=== PATIENT | male | born 1980 | race Caucasian/White ===

== ENCOUNTER 2016-08-02 10:00 | Inpatient (IN) | payer OTHER ==
--- NOTE | ~2016-08-02 | DS ---
Unit #: [id number] #: [id number] Patient: ASPEN MOYER [id number] [place] [address] [id number] MR#: [id number] NAME: ASPEN MOYER ROOM: [facility] Age: 35 Sex: M Admission Date: 08/02/2016 : 1980 Discharge Date: 08/06/2016 Attending Physician: Michael Alexandre M.D. [facility] DIS[facility]GE SUMMARY REASON FOR ADMISSION The patient is a 35-year-old white male, admitted to the [address] [place] [address] for alcohol detox and what appears to been in manic phase of bipolar disorder. HOSPITAL COURSE The patient was admitted to the [address] [place] [address] and placed on routine detoxification protocol for alcohol. He continued to require multiple p.r.n.'s and it appeared after his initial period of intoxication and had resolved that his ongoing symptoms of irritability, threatening behavior etc., were probably consistent with a bipolar manic episode. Accordingly, the patient's medications including Depakote and Seroquel were titrated aggressively upward. The patient did request reinitiation of Adderall, but it was explained that addition of this medication during a manic phase would be unwise. The patient on 08/06/2016 was much calmer, bright, pleasant, cooperative, and agreeable to plan for followup in the intensive outpatient program. There was no evidence of pressured speech or other manic symptoms. Discharge was as per the patient's request ordered. FINAL DIAGNOSES Bipolar disorder, most recent episode manic; alcohol use disorder. DISPOSITION ON DISCHARGE The patient is discharged on the following medications: Depakote 500 mg t.i.d. for mood stabilization, Neurontin 400 mg t.i.d. for mood stabilization, Vistaril 25 mg q.6 hours p.r.n. anxiety, Seroquel 400 mg at bedtime for mood stabilization. Celexa which the patient had previously taken has been discontinued given his manic symptoms. The patient will participate in the intensive outpatient program following his discharge from the hospital. PROGNOSIS His prognosis is considered fair but will be darkened considerably should he continue to abuse alcohol. Dictated by... Michael Alexandre M.D. VIKTOR/apoorva TD: 08/06/2016 17:29 JOB #: [id number] Unit #: [id number] #: [id number] Patient: ASPEN MOYER DISCHARGE SUMMARY Page 1 of 1 X Michael Alexandre MD X DISCHARGE SUMMARY
--- NOTE | ~2016-08-02 | PN ---
Unit #: [id number] #: [id number] Patient: ASPEN MOYER [id number] [facility] [address] [place] [address] [id number] MR#: [id number] NAME: ASPEN MOYER ROOM: P206 Age: 35 Sex: M Admission Date: 08/02/2016 : 1980 Attending Physician: Michael Alexandre M.D. Admitting Physician: Michael Alexandre M.D. Primary Care Physician: [facility] PROGRESS NOTES DATE 08/05/2016 DISCUSSION The patient continues to appear agitated, irritable, consistent with a bipolar manic episode. Upward titration of Seroquel will take place to a dose of 400 mg, and I will increase the patient's Depakote to 1500 mg daily in a divided dose. The patient has also been provided with p.r.n. Haldol, Ativan, and Benadryl today as per his request. Dictated by... Michael Alexandre M.D. CB/kristie TD: 08/05/2016 13:44 JOB #: [id number] [facility] PROGRESS NOTES Page 1 of 1 X Michael Alexandre MD X PROGRESS NOTE
--- NOTE | ~2016-08-02 | PN ---
Unit #: [id number] #: [id number] Patient: ASPEN MOYER [id number] [facility] [address] [place] [address] [id number] MR#: [id number] NAME: ASPEN MOYER ROOM: P206 Age: 35 Sex: M Admission Date: 08/02/2016 : 1980 Attending Physician: Michael Alexandre M.D. Admitting Physician: Michael Alexandre M.D. Primary Care Physician: [facility] PROGRESS NOTES DATE 08/03/2016 DISCUSSION The patient is contrite over yesterday's events. He is expressing interest in going to [facility] following his discharge from this facility. His detox continues uneventfully and he is active within the therapeutic milieu. Dictated by... Michael Alexandre M.D. CB/starr TD: 08/03/2016 21:49 JOB #: [id number] [facility] PROGRESS NOTES Page 1 of 1 X Michael Alexandre MD PROGRESS NOTE
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
--- NOTE | ~2016-08-02 | PN ---
Unit #: [id number] #: [id number] Patient: ASPEN MOYER [id number] [facility] [address] [place] [address] [id number] MR#: [id number] NAME: ASPEN MOYER ROOM: P206 Age: 35 Sex: M Admission Date: 08/02/2016 : 1980 Attending Physician: Michael Alexandre M.D. Admitting Physician: Michael Alexandre M.D. Primary Care Physician: [facility] PROGRESS NOTES DATE 08/04/2016 DISCUSSION The patient seems to be exhibiting symptoms possibly consistent with bipolar manic episode as he required p.r.n. Haldol, Benadryl, and Ativan earlier today. He is now sleeping soundly after he had threatened staff and property destruction. We continued current treatment and have restarted the patient's prescribed psychotropic medications including Seroquel and Depakote which he takes for the bipolar spectrum disorder. Dictated by... Michael Alexandre M.D. CB/davonte TD: 08/04/2016 14:11 JOB #: [id number] [facility] PROGRESS NOTES Page 1 of 1 X Michael Alexandre MD X PROGRESS NOTE
--- NOTE | ~2016-08-02 | PA ---
Unit #: [id number] #: [id number] Patient: ASPEN MOYER [id number] [place] [address] [id number] MR#: [id number] NAME: ASPEN MOYER ROOM: P206 Age: 35 Sex: M Admission Date: 08/02/2016 : 1980 Date of Assessment: 08/01/2016 Attending Physician: Michael Alexandre M.D. Admitting Physician: Michael Alexandre M.D. Primary Care Physician: [facility] PSYCHIATRIC ASSESSMENT IDENTIFYING INFORMATION The patient is a 35-year-old white male admitted to the [address] [place] [address] with increasing abuse of alcohol. INFORMANT(S) The patient and chart, reliability good. CHIEF COMPLAINT None given HISTORY OF PRESENT ILLNESS The patient is a 35-year-old white male last hospitalized at this facility in July of 2015. He has a history of alcohol dependence and when last hospitalized here was voicing suicidal ideation related to a relationship breakup. When seen today the patient was admitted with a blood alcohol of 0.176 and required a 72 hour hold in the emergency room. He is contrite over his return to this facility. For complete history of present illness please refer to previous dictated notes. PAST PSYCHIATRIC HISTORY Reviewed no changes. PAST MEDICAL HISTORY Reviewed no changes. MEDICATIONS At the time of the patient's discharge from this facility he was prescribed Neurontin 600 mg three times daily for mood stabilization. ALLERGIES None reported. FAMILY HISTORY Reviewed no changes. SOCIAL HISTORY Reviewed no changes. MENTAL STATUS EXAMINATION At this time reveals the patient to be a well-developed, well-nourished white male, appearing his stated age. He smells heavily of alcohol and is somewhat disheveled. He is awake, alert and oriented in all spheres. His Unit #: [id number] #: [id number] Patient: ASPEN MOYER mood is dysphoric. His affect constricted. He is clearly intoxicated. Speech is slurred but generally relevant and coherent. There are no gross deficits in memory or cognition noted. Intelligence is judged to be in the average range based on fund of knowledge. The patient is cooperative throughout the interview. He is currently denying suicidal or homicidal ideation or psychotic features. Judgment and insight appear to be intact. ASSETS AND LIABILITIES ASSETS: To be assessed. LIABILITIES: Ongoing alcohol use. DIAGNOSTIC IMPRESSION Alcohol use disorder, history of traumatic brain injury. TREATMENT PLAN The patient remains hospitalized for safety and stabilization. 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 ESTIMATED LENGTH OF STAY Three to five days. Suicidal precautions are in place as is a routing detoxification protocol for alcohol. Dictated by... Michael Alexandre M.D. VIKTOR/starr TD: 08/03/2016 02:14 JOB #: [id number] PSYCHIATRIC ASSESSMENT Page 1 of 1 X Michael Alexandre MD X PSYCHIATRIC ASSESSMENT
[2016-08-04 09:42] LABS: BASOPHIL% 0.5 % (0-2.5); EOSINOPHIL# 0.2 X10e3 (0-0.7); HEMATOCRIT 46.1 % (38.0-50.0); HEMOGLOBIN 15.6 gm/dL (13.0-16.0); LYMPHOCYTE# 3.2 X10e3 (1.0-3.5); LYMPHOCYTE% 35.7 % (17.0-45.0); MEAN CELL VOLUME 95.8 FL (83-96); MEAN CORPUSCULAR HEMOGLOBIN 32.5 PG (28-34); MEAN CORPUSCULAR HGB CONC 33.9 g/dL (30-36); MEAN PLATELET VOLUME 7.8 FL (6.5-11.5); MONOCYTE# 0.7 X10e3 (0-1.0); MONOCYTE% 7.2 % (3.0-12.0); NEUTROPHIL# 4.9 X10e3 (1.5-7.1); NEUTROPHIL% 54.6 % (40-75); PLATELET COUNT 200 X10e3 (140-420); RED BLOOD COUNT 4.81 X10e (3.90-5.60); WHITE BLOOD COUNT 9.1 X10e3 (4.0-10.5)
[2016-08-04 09:44] LABS: DIFF IND NO
[2016-08-04 09:53] LABS: ALBUMIN SERUM 3.5 g/dL (3.5-5.0); BILIRUBIN,TOTAL 1.1 mg/dL (0.2-2.0); BUN/CREATININE RATIO 15.55; CREATININE SERUM 0.9 mg/dL (0.6-1.4); GLOM FILT RATE Estimated 108.7 mL/min (>60); PROTEIN TOTAL SERUM 6.1 g/dL (6.0-8.3)
[2016-08-05 10:07] LABS: URINE APPEARANCE CLEAR; URINE BILIRUBIN NEG (NEG); URINE BLOOD NEG (NEG); URINE COLOR DK YELLOW; URINE GLUCOSE NEG (NEG); URINE KETONE NEG (NEG); URINE LEUKOCYTE ESTERASE NEG (NEG); URINE NITRATE NEG (NEG); URINE PROTEIN NEG (NEG); URINE SPECIFIC GRAVITY 1.018 (1.003-1.035)
[2016-08-05 10:34] LABS: AMPHETAMINE NEG (NEG); BARBITURATES NEG (NEG); BENZODIAZEPINES POS (NEG); COCAINE NEG (NEG); MARIJUANA NEG (NEG); OPIATES NEG (NEG); TRICYCLIC ANTIDEPRESSANTS POS (NEG); U METHADONE NEG (NEG)
== END 2016-08-06 14:54 | disposition home or self-care (01) | DRG 897 ==
LOC: P2S 12:12 → POF 19:16 → P2S 19:19
PROVIDERS: Specialist
PROC: HZ2ZZZZ Detoxification Services for Substance Abuse Treatment (ICD-10-PCS; principal; 2016-08-02)
DX: F10.10 Alcohol abuse, uncomplicated (principal); R45.851 Suicidal ideations; F31.10 Bipolar disorder, current episode manic without psychotic features, unspecified; Z87.820 Personal history of traumatic brain injury; Z72.0 Tobacco use; Z88.0 Allergy status to penicillin; Z91.018 Allergy to other foods
CPT/HCPCS: 80053; 80307; 81003; 85025; 86592; J1200; J1630; J2060; J3486